=== PATIENT | female | born 1930 | race Caucasian/White ===

== ENCOUNTER 2017-05-07 19:02 | Emergency (ER) | payer MEDICARE, OTHER ==
--- NOTE | 2017-05-08 19:09 | ER ---
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 and at 6, she was found by her son lying on the ground, but the patient was awake answering the question. The patient could not recall what happened and how she fell. The patient denies any neck pain or back pain. No chest pain, shortness of breath, or hip pain. The patient was brought to the ER for evaluation. PHYSICAL EXAMINATION: GENERAL: In the ER when I saw the patient, she was in no pain or distress. Alert and oriented to person and time and situation. VITAL SIGNS: Stable. HEAD AND NECK: The patient had ecchymosis on the left supraorbital area and the left frontal area with mild swelling without any depressed bone, no hemotympanum, no Ignacio sign or raccoon eyes, no midline tenderness or step- offs in the spine. CHEST: Clear bilaterally. HEART: S1-S2 was heard with pansystolic murmur, holosystolic murmur, I did not hear any gallops. ABDOMEN: Soft, but looks stable. EXTREMITIES: Range of motion of all extremities passive and active is normal, and I did not see any signs of trauma in the extremities. LABORATORY DATA: EKG was sinus bradycardia with a rate of 53 with normal QT interval. The patient had white BC of 12.4 with hemoglobin of 12.5, with platelet of 293. The CMP was noncontributory and negative. Urine was normal. INR was 1.03, CK was 128, and troponin I was negative. CT scan of the head and neck was negative for any acute changes. The patient is stable to be discharged to home. The patient was advised to follow up with primary doctor for further evaluation, the patient was advised to reduce obstacles in the room, increase the lighting of the room and follow up with the primary doctor for ground level fall. Varun Boland MD/ skip JOB #: [id number] CC: Varun Boland MD, Attending Physician Trevor Mario MD, Family Physician
== END 2017-05-07 21:45 | disposition home or self-care (01) ==
LOC: ER 19:02
DX: S00.83XA Contusion of other part of head, initial encounter (principal); I10 Essential (primary) hypertension; J44.9 Chronic obstructive pulmonary disease, unspecified; F17.210 Nicotine dependence, cigarettes, uncomplicated; G40.909 Epilepsy, unspecified, not intractable, without status epilepticus; Z90.710 Acquired absence of both cervix and uterus; Z79.82 Long term (current) use of aspirin; Z79.899 Other long term (current) drug therapy; W18.30XA Fall on same level, unspecified, initial encounter